=== PATIENT | female | born 1980 | race Caucasian/White ===

== ENCOUNTER 2023-12-30 07:26 | Inpatient (IN) | payer SELFPAY ==
[~2023-12-30] VITALS: Ht 162.6 cm; Wt 84.8 kg
[2023-12-30 09:08] LABS: BASOPHILS % 0.4 % (0.0-2.0); EOSINOPHILS % 1.1 % (0.0-5.0); HEMATOCRIT. 36.2 % (36.0-48.0); HEMOGLOBIN. 12.2 g/dL (12.0-16.0); LYMPHOCYTES % 30.8 % (20.0-50.0); MEAN CORPUSCULAR HEMOGLOBIN 28.7 pg (28.0-32.0); MEAN CORPUSCULAR HGB CONC 33.7 g/dL (31.0-37.0); MEAN PLATELET VOLUME 9.2 fl (7.4-10.4); MONOCYTES % 5.3 % (2.0-8.0); NEUTROPHILS % 62.4 % (40.0-76.0); PLATELET 258 x1000/uL (130-400); RED BLOOD CELL COUNT 4.26 mill/uL (4.2-5.4); RED CELL DISTRIBUTION WIDTH 13.6 % (11.6-14.6); WHITE BLOOD COUNT 5.1 x1000/uL (4.5-11.0)
[2023-12-30 09:23] LABS: PROTHROMBIN TIME 11.1 sec (9.6-11.0)
[2023-12-30 09:26] LABS: CLARITY URINE CLEAR (CLEAR); COLOR URINE YELLOW (YELLOW); GLUCOSE URINE NEGATIVE (NEGATIVE); KETONES URINE NEGATIVE (NEGATIVE); LEUKOCYTE ESTERASE URINE NEGATIVE (NEGATIVE); NITRITE URINE NEGATIVE (NEGATIVE); OCCULT BLOOD URINE NEGATIVE (NEGATIVE); PROTEIN URINE NEGATIVE (NEGATIVE); SPECIFIC GRAVITY URINE 1.012 (1.005-1.030); UROBILINOGEN URINE 0.2 E.U./dL (0.2-1.0)
[2023-12-30 09:26] LABS: ALANINE AMINOTRANSFERASE 17 IU/L (10-49); ALBUMIN 4.5 g/dL (3.2-4.8); ASPARTATE AMINOTRANSFERASE 19 IU/L (<34); BILIRUBIN TOTAL 0.4 mg/dL (0.1-1.0); CALCIUM 9.2 mg/dL (8.7-10.4); CARBON DIOXIDE 28 mEq/L (21-32); CHLORIDE 108 mEq/L (98-107); CREATININE 0.7 mg/dL (0.6-1.0); GLUCOSE 90 mg/dL (70-105); PROTEIN TOTAL 7.4 g/dL (6.0-8.3); SODIUM 143 mEq/L (136-145); UREA NITROGEN BLOOD 13 mg/dL (9-23)
[2023-12-30 09:33] LABS: TROPONIN I HIGH SENSITIVITY < 4 ng/L (3.0-34)
[2023-12-30] MEDS: ACETAMINOPHEN 325MG TABLET PO ONE (10:33)
[2023-12-30 10:43] LABS: HCG SCREEN NEGATIVE
[2023-12-30 11:54] LABS: TROPONIN I HIGH SENSITIVITY < 4 ng/L (3.0-34)
[2023-12-30] MEDS: ASPIRIN 81MG TABLET PO ONE (12:45)
[2023-12-30 13:23] VITALS: BP 108/54; PULSE 57; RESP 16; TEMP 98.4
[2023-12-30 15:55] LABS: TROPONIN I HIGH SENSITIVITY < 4 ng/L (3.0-34)
[2023-12-30 16:00] VITALS: BP 108/54; PULSE 52; PULSE 57; RESP 16; RESP 30; TEMP 98; TEMP 98.5
[2023-12-30] MEDS ORDERED: DOCUSATE SODIUM 100MG CAPSULE PO PRN (16:00)
[2023-12-30] MEDS ORDERED: ACETAMINOPHEN 325MG TABLET PO PRN (16:00)
[2023-12-30] MEDS ORDERED: IPRATROPIUM/ALBUTEROL 0.5-3(2.5)MG/3ML NEB HHN PRN (16:00)
[2023-12-30] MEDS ORDERED: ONDANSETRON HCL 4MG/2ML INJ IV PRN (16:00)
[2023-12-30] MEDS ORDERED: MAGNESIUM/ALUMINUM HYDROXIDE/SIMETHICONE 30ML UDC PO PRN (16:00)
[2023-12-30] MEDS: ENOXAPARIN 40MG/0.4ML SYR SUBCUT SCH (18:00)
[2023-12-30 20:00] VITALS: BP 102/68; PULSE 56; RESP 18; TEMP 98.3
[2023-12-30 20:41] LABS: D-DIMER 0.26 mg/L FEU (<0.50)
[2023-12-30 22:29] LABS: CREATINE KINASE 70 IU/L (34-145)
[2023-12-30 22:31] LABS: CREATINE KINASE MB FRACTION < 0.0 ng/mL (0.5-3.6)
[2023-12-31] VITALS: BP 101/61; PULSE 51; RESP 14; TEMP 98
[2023-12-31 04:00] VITALS: BP 96/64; PULSE 55; RESP 22; TEMP 97.7
[2023-12-31] MEDS: ACETAMINOPHEN 325MG TABLET PO PRN (05:58)
[2023-12-31 07:47] LABS: BASOPHILS % 0.6 % (0.0-2.0); HEMATOCRIT. 36.6 % (36.0-48.0); HEMOGLOBIN. 12.4 g/dL (12.0-16.0); LYMPHOCYTES % 31.6 % (20.0-50.0); MEAN CORPUSCULAR HEMOGLOBIN 28.3 pg (28.0-32.0); MEAN CORPUSCULAR HGB CONC 33.9 g/dL (31.0-37.0); MEAN CORPUSCULAR VOLUME 83.5 fL (81.0-99.0); MONOCYTES % 5.9 % (2.0-8.0); NEUTROPHILS % 60.9 % (40.0-76.0); RED BLOOD CELL COUNT 4.39 mill/uL (4.2-5.4); RED CELL DISTRIBUTION WIDTH 13.9 % (11.6-14.6)
[2023-12-31 08:00] VITALS: BP 107/72; PULSE 66; RESP 12; TEMP 98.4
[2023-12-31 08:29] LABS: DIFFERENTIAL COMMENT 1
[2023-12-31] MEDS: PANTOPRAZOLE SODIUM 40 MG/VIAL IV SCH (09:10)
[2023-12-31 09:51] LABS: HEPATITIS B SURFACE ANTIGEN NEGATIVE (Negative); HEPATITIS C AB NON REACTIVE (Neg) (Negative)
[2023-12-31 10:21] LABS: PLATELET 225 x1000/uL (130-400)
[2023-12-31 12:02] VITALS: BP 90/51; PULSE 53; RESP 16; TEMP 99.1
[2023-12-31 14:42] LABS: ALANINE AMINOTRANSFERASE 15 IU/L (10-49); ALBUMIN 4.4 g/dL (3.2-4.8); ASPARTATE AMINOTRANSFERASE 23 IU/L (<34); BILIRUBIN TOTAL 0.4 mg/dL (0.1-1.0); CARBON DIOXIDE 22 mEq/L (21-32); CHLORIDE 109 mEq/L (98-107); CHOLESTEROL 139 mg/dL (<200); CREATINE KINASE 57 IU/L (34-145); CREATINE KINASE MB FRACTION < 0.5 ng/mL (0.5-3.6); CREATININE 0.7 mg/dL (0.6-1.0); GLUCOSE 91 mg/dL (70-105); HDL CHOLESTEROL 43 mg/dL (>65); LDL CHOLESTEROL 91 mg/dL (5-100); POTASSIUM 4.3 mEq/L (3.5-5.1); PROTEIN TOTAL 7.3 g/dL (6.0-8.3); SODIUM 142 mEq/L (136-145); T4 FREE 1.15 ng/dL (0.89-1.76); THYROID STIMULATING HORMONE 1.27 uIU/mL (0.55-4.78); TRIGLYCERIDE 70 mg/dL (0-150); UREA NITROGEN BLOOD 13 mg/dL (9-23)
[2023-12-31 16:25] VITALS: BP 97/69; PULSE 57; RESP 14; TEMP 98.3
[2023-12-31 16:59] VITALS: BP 97/69; PULSE 57; TEMP 98.3; O2SAT 99
== END 2023-12-31 18:34 | disposition home or self-care (01) | DRG 203 ==
LOC: ER 07:26 → 3WST 12:58
PROVIDERS: ADMIT Internal Medicine; ATTEND Internal Medicine
DX: M94.0 Chondrocostal junction syndrome [Tietze] (principal); R00.1 Bradycardia, unspecified; E03.9 Hypothyroidism, unspecified; Z90.710 Acquired absence of both cervix and uterus
CPT/HCPCS: 36415; 71045; 80053; 80061; 81003; 82550; 82553; 83735; 83880; 84100; 84439; 84443; 84481; 84484; 84703; 85025; 85379; 85651; 86705; 87340; 93005; 93306; 93880; 99285; C9113; J1650

== ENCOUNTER 2024-03-29 16:07 | Emergency (ER) | payer MEDICAID ==
[~2024-03-29] VITALS: Ht 152.4 cm; Wt 67.0 kg
[2024-03-29 16:18] VITALS: O2SAT 100
[2024-03-29] MEDS ORDERED: TETANUS, DIPHTHERIA, PERTUSSIS VAC/PF 0.5ML (>10YR OLD) IM ONE (19:15)
[2024-03-29] MEDS ORDERED: BACITRACIN ZINC OINT UDPKT TOP ONE (19:15)
[2024-03-29] MEDS: LIDOCAINE HCL/PF 1% 10 MG/ML 5ML VIAL INFIL ONE (19:15)
[2024-03-29] MEDS: ACETAMINOPHEN 325MG TABLET PO ONE (21:02)
[2024-03-29] MEDS: TETANUS, DIPHTHERIA, PERTUSSIS VAC/PF 0.5ML (>10YR OLD) IM ONE (21:02)
[2024-03-29] MEDS: BACITRACIN ZINC OINT UDPKT TOP NR (21:02)
[2024-03-29] MEDS ORDERED: CEPH500C2 MT (21:09)
[2024-03-29] MEDS ORDERED: SULF1TAB48 MT (21:09)
[2024-03-29 21:18] VITALS: BP 132/68; PULSE 87; RESP 18; TEMP 98.8
== END 2024-03-29 21:25 | disposition home or self-care (01) ==
LOC: ER 16:07
DX: L02.415 Cutaneous abscess of right lower limb (principal); D64.9 Anemia, unspecified; Z90.710 Acquired absence of both cervix and uterus
CPT/HCPCS: 10060; 90471; 90715; 99283

== ENCOUNTER 2024-04-02 18:26 | Emergency (ER) | payer MEDICAID ==
[~2024-04-02] VITALS: Ht 162.6 cm; Wt 79.0 kg
[~2024-04-02 18:26] MED LIST: CEPH500C2 MT; SULF1TAB48 MT
[2024-04-02 18:32] VITALS: TEMP 98.7; O2SAT 99
[2024-04-02] MEDS ORDERED: MUPI1OIN4 TP (21:38)
[2024-04-02 23:44] VITALS: BP 135/88; PULSE 88; RESP 18
== END 2024-04-02 23:45 | disposition home or self-care (01) ==
LOC: ER 18:26
DX: L03.115 Cellulitis of right lower limb (principal); D64.9 Anemia, unspecified; Z90.710 Acquired absence of both cervix and uterus
CPT/HCPCS: 99283